=== PATIENT | male | born 1965 | race Caucasian/White ===

== ENCOUNTER 2024-04-23 09:18 | Day surgery (SDC) | payer OTHER ==
[~2024-04-23] VITALS: Ht 175.3 cm; Wt 103.8 kg
[2024-04-23] VITALS (8 sets, daily range): BP systolic 116–131; BP diastolic 85–91
[~2024-04-23 09:18] MED LIST: ATOR40TA PO; Aspir 8181 MG PO; IRBE150; METO50ER PO; NITR.4SL SL; SPIR25 PO; TORSE20 PO
[2024-04-23] MEDS ORDERED: Lactated Ringer's 1,000 ML IV SCH (09:25)
[2024-04-23] MEDS ORDERED: CeFAZolin Sodium 2,000 MG in NS 100 ML IV SCH (09:25)
[2024-04-23] MEDS ORDERED: propofoL 20 ML IV ONE (10:27)
[2024-04-23] MEDS ORDERED: Bupivacaine 0.5% HCl 5 MG/ML 30MLVIAL ONE (10:48)
[2024-04-23] MEDS ORDERED: Lidocaine HCl 4% 5 ML SDA ONE ×2 (11:01→11:02)
[2024-04-23] MEDS ORDERED: Etomidate 2MG / ML 10ML Vial ONE (11:19)
[2024-04-23] MEDS ORDERED: Dexmedetomidine HCL 200 MCG / 2 ML ONE (11:19)
[2024-04-23] MEDS ORDERED: ePHEDrine Sulfate 50 MG/ML 1ML Injection ONE (11:23)
[2024-04-23] MEDS ORDERED: Sugammadex Sodium 200 MG/2ML SDV (100 MG/ML) ONE ×2 (11:51→12:05)
--- NOTE | 2024-04-23 12:10 | NUR ---
04/23/24 1210 Danna Marx ALL COUNTS CORRECT
[2024-04-23] MEDS ORDERED: Ondansetron HCl 2 MG / ML 2ML Vial ONE (12:12)
[2024-04-23] MEDS ORDERED: Dexamethasone Sod Phos 10 MG/ML 1ML VIAL ONE (12:12)
[2024-04-23] MEDS ORDERED: Rocuronium Bromide 10 MG/ML 5ML Injection IV ONE (12:12)
[2024-04-23] MEDS ORDERED: SuccINYLCHOLINE Chloride 100 MG/5 ML 5MLSYR ONE (12:12)
[2024-04-23] MEDS ORDERED: HYDROcodone 5-APAP 325 TAB PO PRN (12:35)
--- NOTE | 2024-04-23 12:40 | NUR ---
PT TO DAY SURGERY STEP DOWN FROM PACU WITH INCISION HERNIA REPAIR; BEDSIDE REPORT RECEIVED. PT IS AWAKE, ALERT AND ORIENTED; ABLE TO MOVE SELF IN BED. VSS. AFEBRILE. PT HAS 1 INCISIONAL SITE ON HIS ABD THAT IS CLOSED WITH DERMABOND AND IS C/D/I. PT DENIES PAIN AT THIS TIME.
--- NOTE | 2024-04-23 12:59 | NUR ---
PT TOLERATING PO FLUIDS WELL
--- NOTE | 2024-04-23 13:00 | NUR ---
PT INCISION REMAINS C/D/I
--- NOTE | 2024-04-23 13:03 | NUR ---
Discharge instructions reviewed with patient. Patient verbalizes understanding. Copy given to patient to take home. Patient States Post-Procedure ride home has been arranged.
--- NOTE | 2024-04-23 13:12 | NUR ---
PT DECLINES ICE PACK, STATES HE HAS SOME AT HOME THAT HE PREFERS. DR ARANGO ELECTRONICALLY SENT IN PT PAIN MEDICATION TO [facility].
--- NOTE | 2024-04-23 13:19 | NUR ---
Patient up to Ambulate independently. Gait steady. Discharged via wheelchair to private car for ride home.
--- NOTE | 2024-04-23 13:22 | NUR ---
Discharged via wheelchair to private car for ride home.
== END 2024-04-23 13:20 | disposition home or self-care (01) ==
LOC: ORSCMMR 09:18 → ORD 10:45 → ORSCMMR 10:45
PROVIDERS: Surgery
PROC: 0WQF0ZZ Repair Abdominal Wall, Open Approach (ICD-10-PCS; principal; 2024-04-23 10:45)
DX: K43.2 Incisional hernia without obstruction or gangrene (principal); I12.9 Hypertensive chronic kidney disease with stage 1 through stage 4 chronic kidney disease, or unspecified chronic kidney disease; N18.9 Chronic kidney disease, unspecified; Z87.891 Personal history of nicotine dependence; I25.2 Old myocardial infarction; Z86.73 Personal history of transient ischemic attack (TIA), and cerebral infarction without residual deficits; E66.9 Obesity, unspecified; Z68.33 Body mass index [BMI] 33.0-33.9, adult; Z79.899 Other long term (current) drug therapy; Z79.82 Long term (current) use of aspirin
CPT/HCPCS: J0330; J0690; J1100; J2001; J2003; J2405; J2704; J7120